=== PATIENT | female | born 1945 | race Caucasian/White ===

== ENCOUNTER 2019-08-08 07:52 | Day surgery (SDC) | payer MEDICARE, OTHER ==
[~2019-08-08] VITALS: Ht 157.5 cm; Wt 72.2 kg
[~2019-08-08 07:52] MED LIST: ASPI325 PO; CYCL0.05OP; FISH1000 PO; Finacea50 GM; Simvastatin20 MG PO; TIROSINT50 MCG PO; VITAMIN D31000 UNIT PO; XYZAL5 MG PO
[2019-08-08] MEDS ORDERED: ESCITALOPRA5 MG/5 ML PO (08:58)
--- NOTE | 2019-08-08 09:24 | NUR ---
08/08/19 0924 LUIZ CARRILLO IN TO SEE PATIENT AT 0916. PATIENT TEACHING PERFORMED ON OR AND POST OP CARE. SPOUSE AT BEDSIDE, DENY QUESTIONS. CALL LIGHT IN REACH. WILL CONTINUE TO UPDATE PATIENT. WE ARE AWAITING CX BY PRIOR TO PROCEEDING.
--- NOTE | 2019-08-08 11:50 | NUR ---
08/08/19 1150 Natalee Simmons WC TO BR AND VOIDED PRIOR TO DC HOME. HOME WITH ICE PACK FOR FOOT AND ICE PACK FOR HAND. SARA PO. NO C/O PAIN OR NAUSEA T/O RECOVERY
== END 2019-08-08 11:40 | disposition home or self-care (01) ==
LOC: ORSCSDS 07:52
PROVIDERS: Podiatrist Foot & Ankle Surgery
PROC: 0QBL0ZZ Excision of Right Tarsal, Open Approach (ICD-10-PCS; principal; 2019-08-08 10:00)
PROC: 0QBN0ZZ Excision of Right Metatarsal, Open Approach (ICD-10-PCS; principal; 2019-08-08 10:00)
PROC: 0LN80ZZ Release Left Hand Tendon, Open Approach (ICD-10-PCS; principal; 2019-08-08 10:00)
DX: M65.312 Trigger thumb, left thumb (principal); M19.071 Primary osteoarthritis, right ankle and foot; E11.9 Type 2 diabetes mellitus without complications; Z79.899 Other long term (current) drug therapy
CPT/HCPCS: J0171; J0690; J1100; J2250; J2405; J2704; J3010; J7120

== ENCOUNTER 2021-06-22 07:54 | Day surgery (SDC) | payer MEDICARE, BC ==
[~2021-06-22] VITALS: Ht 160 cm; Wt 70.8 kg
[~2021-06-22 07:54] MED LIST changes: +ESCITALOPRA5 MG/5 ML PO
== END 2021-06-22 10:45 | disposition home or self-care (01) ==
LOC: ORSCSDS 07:54
PROVIDERS: Internal Medicine Gastroenterology
PROC: 0DBH8ZX Excision of Cecum, Via Natural or Artificial Opening Endoscopic, Diagnostic (ICD-10-PCS; principal; 2021-06-22 09:30)
PROC: 0DBN8ZX Excision of Sigmoid Colon, Via Natural or Artificial Opening Endoscopic, Diagnostic (ICD-10-PCS; principal; 2021-06-22 09:30)
DX: Z12.11 Encounter for screening for malignant neoplasm of colon (principal); Z86.010 Personal history of colon polyps; K63.5 Polyp of colon; K57.30 Diverticulosis of large intestine without perforation or abscess without bleeding; K64.8 Other hemorrhoids; Z80.0 Family history of malignant neoplasm of digestive organs; Z79.82 Long term (current) use of aspirin; Z79.899 Other long term (current) drug therapy
CPT/HCPCS: 88305; J2704; J7120

== ENCOUNTER 2021-07-07 09:44 | Inpatient (IN) | payer MEDICARE, BC ==
[~2021-07-07] VITALS: Ht 160 cm; Wt 71.6 kg
[~2021-07-07 09:44] MED LIST changes: +ASCO500 PO; +ASPI81CH PO; +COQ1050 MG PO; +CRANBERRY500 MG PO; +FLAX PO; +MAGNESIUM PO; +UBIQUINOL PO; +ZINC15 PO
--- NOTE | 2021-07-07 10:47 | NUR ---
PT HAS A SMALL 1 INCH LONG, THINK LINE ABRASION ABOUT 1.5 INCHES ABOVE THE NAVEL. PT STATES IT IS A "SCRATCH FROM A DOG THAT JUMPED ON ME". IT IS PINK WITH HEALED OVER SCABBING.
--- NOTE | 2021-07-07 13:51 | NUR ---
ARRIVED INTO STEP VSS. [address] ON ABDOMEN
--- NOTE | 2021-07-07 15:32 | NUR ---
Discharge instructions reviewed with patient. Patient verbalizes understanding. Copy given to patient to take home. Patient States Post-Procedure ride home has been arranged. Discharged via wheelchair to private car for ride home.
== END 2021-07-07 15:32 | disposition home or self-care (01) | DRG 331 ==
LOC: SURS 09:44 → PRE IP 11:00 → SURS 15:32
PROVIDERS: ADMIT Surgery
PROC: 0DBH4ZZ Excision of Cecum, Percutaneous Endoscopic Approach (ICD-10-PCS; 2021-07-07)
PROC: 0DTJ4ZZ Resection of Appendix, Percutaneous Endoscopic Approach (ICD-10-PCS; principal; 2021-07-07 11:00)
DX: D12.1 Benign neoplasm of appendix (principal); D12.0 Benign neoplasm of cecum; E03.9 Hypothyroidism, unspecified; Z98.890 Other specified postprocedural states; Z87.19 Personal history of other diseases of the digestive system
CPT/HCPCS: 88307; J0690; J1100; J1885; J2250; J2370; J2405; J2704; J3010

== ENCOUNTER 2024-09-16 07:56 | Day surgery (SDC) | payer MEDICARE ==
[~2024-09-16] VITALS: Ht 157.5 cm; Wt 67.0 kg
[~2024-09-16 07:56] MED LIST changes: +Lactated Ringer's 1,000 ML IV ONE; +propofoL 40 ML IV ONE
[2024-09-16] MEDS ORDERED: Lactated Ringer's 1,000 ML IV ONE (08:25)
[2024-09-16] MEDS ORDERED: ESTRADIOL42.5 GM (08:29)
[2024-09-16 10:30] VITALS: BP 109/78
== END 2024-09-16 10:29 | disposition home or self-care (01) ==
LOC: ORSCSDS 07:56
PROVIDERS: Internal Medicine Gastroenterology
PROC: 0DBP8ZX Excision of Rectum, Via Natural or Artificial Opening Endoscopic, Diagnostic (ICD-10-PCS; principal; 2024-09-16 09:30)
DX: Z12.11 Encounter for screening for malignant neoplasm of colon (principal); Z80.0 Family history of malignant neoplasm of digestive organs; K62.1 Rectal polyp; E03.9 Hypothyroidism, unspecified; Z79.899 Other long term (current) drug therapy
CPT/HCPCS: 88305; J2704; J7120